=== PATIENT | female | born 1980 | race Caucasian/White ===

== ENCOUNTER 2017-02-03 08:31 | Day surgery (SDC) | payer OTHER ==
--- NOTE | ~2017-02-03 | EGD ---
EGD REPORT [facility] [address] [place] [address] NAME: PATRICIA CURRY : [birth year] STATUS : REG [facility] PAT#: [id number] AGE: 37 ADM/REG DATE : 02/03/17 MR#: [id number] REPORT SERV DATE: 02/03/17 DICTATED BY: SHREYAS WILKES DATE: 02/03/17 REPORT STATUS : Draft [facility]ANS[facility] BY: [facility] DATE: 02/03/17 Endoscopy Center Patient Name: Patricia Curry Date of : 1980 Attending MD: SHREYAS WILKES, Procedure Date No Time: 02/03/2017 Procedure: Upper GI endoscopy Indications: Nausea with vomiting. Dilated bile duct. Not EUS not performed due to duodenal obstruction. Note:prior to procedure the patient denied all NSAID usage. Referring MD: PAGE BRENNER III, MD Medicines: General Anesthesia Complications: No immediate complications. Estimated blood loss: None. Procedure: After obtaining informed consent, the endoscope was passed under direct vision. Throughout the procedure, the patient's blood pressure, pulse, and oxygen saturations were monitored continuously. The Endoscope was introduced through the mouth, and advanced to the duodenal bulb. After obtaining informed consent, the endoscope was passed under direct vision. Throughout the procedure, the patient's blood pressure, pulse, and oxygen saturations were monitored continuously. Findings: The esophagus was normal. A large amount of food (residue) was found in the gastric body. The exam of the stomach was otherwise normal. The cardia and gastric fundus were normal on retroflexion. One non-bleeding cratered duodenal ulcer with no stigmata of bleeding was found in the duodenal bulb. The lesion was 25 mm in largest dimension. Biopsies were taken with a cold forceps for histology. Verification of patient identification for the specimen was done. Estimated blood loss was minimal. An acquired severe stenosis was found in the duodenal bulb associated with the ulcer and was non-traversed. A TTS dilator was passed through the scope. Dilation with an 8-9-10 mm pyloric balloon dilator was performed. Normal mucosa was found in the entire examined stomach. Biopsies were taken with a cold forceps for histology. Verification of patient identification for the specimen was done. Estimated blood loss was minimal. Impression: - Normal esophagus. - A large amount of food (residue) in the stomach. - One duodenal ulcer with clean base. Biopsied. EGD REPORT [address] [address] NAME: PATRICIA CURRY BK : [birth year] STATUS : REG [facility] PAT#: [id number] AGE: 37 ADM/REG DATE : 02/03/17 MR#: [id number] REPORT SERV DATE: 02/03/17 DICTATED BY: SHREYAS WILKES DATE: 02/03/17 REPORT STATUS : Draft TRANSCRIBED BY: [employer] DATE: 02/03/17 - Acquired duodenal stenosis. Dilated. - Normal mucosa was found in the entire stomach. Biopsied. Recommendation: - Continue present medications. - No aspirin, ibuprofen, naproxen, or other non-steroidal anti-inflammatory drugs. - Use Prilosec (omeprazole) 40 mg PO daily. - Await pathology results. - Will need follow up EGD with further dilatation. Procedure Code(s): --- Professional --- 55431, Esophagogastroduodenoscopy, flexible, transoral; with dilation of gastric/duodenal stricture(s) (eg, balloon, bougie) 79448, Esophagogastroduodenoscopy, flexible, transoral; with biopsy, single or multiple Diagnosis Code(s): --- Professional --- K26.9, Duodenal ulcer, unspecified as acute or chronic, without hemorrhage or perforation K31.5, Obstruction of duodenum R11.2, Nausea with vomiting, unspecified CPT copyright 2013 [employer]. All rights reserved. The codes documented in this report are preliminary and upon medical associate review may be revised to meet current compliance requirements. SHREYAS WILKES, 02/03/2017 9:58 AM Number of Addenda: 0 Note Initiated On: 02/03/2017 9:08 AM Scope Withdrawal Time 0 hours 0 minutes 0 seconds [address] [place] [id number]
[~2017-02-03 08:31] MED LIST: NORCO1 TAB PO; NUCYNTA ER100 MG PO; ZEGERID1 CA1 PO
[2017-02-09] MEDS ORDERED: ZOFRAN8 PO (11:45)
[2017-02-09] MEDS ORDERED: FLEX PO (11:46)
[2017-02-12] MEDS ORDERED: CARASPUDL PO (09:38)
[2017-02-12] MEDS ORDERED: ZANTAC150 MG PO (09:41)
[2017-02-12] MEDS ORDERED: LEVSINTAB PO (10:49)
[2017-05-09] MEDS ORDERED: VITAMIN D31000 UNIT PO (12:02)
== END 2017-02-03 12:49 | disposition home or self-care (01) ==
LOC: DMU 08:31
PROVIDERS: Internal Medicine Gastroenterology
PROC: 0DB98ZX Excision of Duodenum, Via Natural or Artificial Opening Endoscopic, Diagnostic (ICD-10-PCS; principal; 2017-02-03 09:20)
PROC: 0D738ZZ Dilation of Lower Esophagus, Via Natural or Artificial Opening Endoscopic (ICD-10-PCS; 2017-02-03 16:30)
DX: K29.80 Duodenitis without bleeding (principal); K26.9 Duodenal ulcer, unspecified as acute or chronic, without hemorrhage or perforation; G43.909 Migraine, unspecified, not intractable, without status migrainosus; K31.5 Obstruction of duodenum; Z87.891 Personal history of nicotine dependence; Z90.710 Acquired absence of both cervix and uterus; Z90.49 Acquired absence of other specified parts of digestive tract; Z98.890 Other specified postprocedural states
CPT/HCPCS: 88305; C1726; J0330; J2405